=== PATIENT | male | born 1970 | race Caucasian/White ===

== ENCOUNTER 2023-10-07 13:43 | Emergency (ER) | payer OTHER, SELFPAY ==
[2023-10-07 14:02] VITALS: BP 121/95
[2023-10-07 14:27] VITALS: BMI 22.9
[2023-10-07 14:36] LABS: Glucose - Point of Care 105 mg/dl (70-99)
[2023-10-07 16:03] VITALS: BP 135/91
[2023-10-07 16:14] LABS: % Basophils 0.5 % (0-2); % Eosinophils 0.6 % (0-6); % Immature Granulocytes 0.3 % (0-0.5); % Lymphocytes 16.2 % (20.5-51.1); % Monocytes 6.1 % (1.7-9.3); % Neutrophils 76.3 % (42.2-75.2); Absolute Eosinophils 0.1 10^3/uL (0-0.7); Absolute Lymphocytes 1.4 10^3/uL (1.2-3.4); Absolute Monocytes 0.5 10^3/uL (0.1-0.6); Absolute Neutrophils 6.6 10^3/uL (1.4-6.5); Hematocrit 41.4 % (39.0-52.0); Hemoglobin 14.5 g/dL (13.0-18.0); Mean Corpuscular Hgb 31.5 pg (27.0-31.0); Mean Corpuscular Volume 89.8 fL (80.0-94.0); Mean Platelet Volume 9.4 fL (7.4-10.4); Nucleated Red Blood Cells % 0 % (-); Platelet Count 354 10^3/uL (130-400); Red Blood Cell Count 4.61 10^6/uL (4.70-6.10); Red Cell Dist. Width 12.7 % (11.5-14.5); White Blood Cell Count 8.6 10^3/uL (4.8-10.8)
[2023-10-07 16:31] LABS: ALT (SGPT) 37 U/L (0-50); AST (SGOT) 29 U/L (17-59); Albumin 4.7 g/dl (3.5-5.0); Alkaline Phosphatase 83 U/L (38-126); Blood Urea Nitrogen 21 mg/dl (9-20); Calcium 9.7 mg/dl (8.4-10.2); Carbon Dioxide 25 mmol/L (22-30); Chloride 107 mmol/L (98-107); Estimated Creatinine Clearance 108 ml/min; Glucose 106 mg/dl (70-99); Lipase 114 U/L (23-300); Sodium 138 mmol/L (135-145); Total Bilirubin 0.4 mg/dl (0.2-1.3); Total Protein 7.8 g/dl (6.3-8.2); eGFR > 60.00
--- NOTE | 2023-10-07 16:39 | ED.GENMED ---
History of Present Illness
General
Chief Complaint: Abnormal Lab Value
Source: patient
Exam Limitations: none
Time Seen by Provider: 10/07/23 15:00
Nursing documentation reviewed up to this point in time: agreed with
Travel History
Have you had any contact with someone who has COVID-19?: No
Do you have any symptoms of coronavirus? Fever > 100 degrees, chills, cough, shortness of breath, sore throat, loss of taste or smell, muscle aches, or headache?: No
History of Present Illness
History of Present Illness:
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
just 'does not feel right'. Patient reports he had recent blood work done and his doctor told him to follow-up with the retail sales associate bilingual. Patient states he is extremely worried that he may be diabetic and feels this is accounting for him not
feeling well. He denies headache, fever, sore throat, chest pain and shortness of breath. He reports he has maintained a low-carb diet but has not lost any weight on this diet. In addition, patient explains that he feels extremely nervous that
something might be wrong with his pancreas and is worried about developing pancreatic cancer. Additionally, patient reports that he has had chronic intermittent dizziness and brief episodes of blurred vision for years, ever since having his brain
tumor and stroke, and states that he continues to have these episodes of brief dizziness and blurred vision from time to time. However, he denies any significantly worse or concerning visual changes or dizziness. He denies any decline in
functioning. He reports he gets around with a cane. Patient reports he is 'not a hypochondriac' but wants to make sure he is okay
Past History
Past History
ED Past Medical History: Cancer (Cystic cerebellar astrocytoma status post brain surgery and radiation in 1988 and 1995)
ED Past Surgical History: Brain (Cystic cerebellar astrocytoma removal initially in 1988 and second portion of the tumor removed in 1995)
Social History
Tobacco: Non-smoker
Alcohol: None
Drug: None
Personal: Single
Living: alone
Employment: Employed
Family History
Family History: Other (Father of lung cancer also alcoholism)
Review of Systems
Review of Systems
Allergies reviewed?: Yes
All Other Systems: ROS reviewed and negative except as documented in HPI and ROS
Constitutional: Reports no symptoms
EENT: Reports other (Brief episodes of blurred vision from time to time that are chronic for years)
Respiratory: Reports no symptoms
Cardiac: Reports no symptoms
ABD/GI: Reports no symptoms
: Reports no symptoms
Musculoskeletal: Reports no symptoms
Skin: Reports no symptoms
Neurological: Reports dizzy (Brief episodes that are chronic for years)
Endocrine: Reports no symptoms
Hematologic/Lymphatic: Reports no symptoms
Psychiatric: Reports no symptoms
Phy Exam
Physical Exam
Physical Exam:
Physical Exam
General: no apparent distress, not acutely ill. Patient appears comfortable, well-nourished and well-perfused
Neck: supple. no meningeal signs. normal psoterior pharynx
Heart: s1/s2 regular rate and rhythm, no murmur. equal radial pulses.
Lungs: no acute respiratory distress. clear bilaterally
Abdomen: normal bowel sounds. not tender. no CVAT
Neuro: alert and orientedx3. Mild chronic aphasia. 5 out of 5 strength in all extremities. Equal sensation bilaterally. Has difficulty with [id number] but patient states he always does
Skin: no rash
Psychiatric: well kept. interactive and cooperative
Extremities: no edema. no calf tenderness. negative homans. good distal pulses
Course
Orders/Labs/Results
Orders:
Orders
10/07/23 15:45
Electrocardiogram (*1) Urgent
Reason for Study: Vertigo / Dizzy
EKG- Treatment ONCE
10/07/23 15:46
CT Head W/o Iv Contrast Urgent
Comment:
Reason For Exam: dizzy
10/07/23 16:02
Complete Blood Count/With Diff Urgent
Comprehensive Metabolic Panel Urgent
Lipase Urgent
Troponin I Urgent
10/07/23 16:37
Urinalysis Reflex To Culture Urgent
Date Specimen was Collected: 10/07/23
Time Specimen was Collected: 16:35
Abnormal Lab Results
10/07/23 10/07/23 10/07/23
14:34 16:02 16:37
RBC 4.61 L 10^6/uL
(4.70-6.10)
MCH 31.5 H pg
(27.0-31.0)
Absolute Neuts (auto) 6.6 H 10^3/uL
(1.4-6.5)
Neutrophils % 76.3 H %
(42.2-75.2)
Lymphocytes % 16.2 L %
(20.5-51.1)
BUN 21 H mg/dl
(9-20)
Glucose 106 H mg/dl
(70-99)
Urine Ketones 3+ A
(Negative)
POC Glucose 105 H mg/dl
(70-99)
10/07/23 16:02
10/07/23 16:02
Vital Signs
Initial and Last Documented VS:
Initial Vital Signs
Temp Pulse Resp BP Pulse Ox
98.0 F 110 18 121/95 95
10/07/23 14:02 10/07/23 14:02 10/07/23 14:02 10/07/23 14:02 10/07/23 14:02
Last Documented Vital Signs
Temp Pulse Resp BP Pulse Ox
98.0 F 99 18 135/91 99
10/07/23 14:02 10/07/23 16:03 10/07/23 14:02 10/07/23 16:03 10/07/23 16:03
MDM/Problems Addressed
Differential Diagnosis Includes:
Dehydration, UTI, hyponatremia, acute renal injury
MDM/Problems Addressed:
Patient presents with acute feelings of not feeling well and chronic intermittent blurred vision and dizziness for years that he states is not worse than his normal waxing and waning
Chronic conditions affecting care:
Given patient's history of prior stroke and brain tumor, he could be at increased risk of stroke or infection
Acute Exacerbation and/or Progression of Chronic Illness:
Patient has mild acute hypertension, however, I suspect this is more likely due to anxiety.
Acute Exacerbation and/or Progression of Chronic Illness: HTN
*Radiology
Radiology exam reviewed: radiology read reviewed
*Pulse Oximetry
Patient hypoxic: no
*EKG
Interpreted by ED Provider?: Yes
Interpretation: normal
Comparison EKG: no changes
Rate: normal
Rhythm: sinus
[place]: normal axis
Interval: normal interval
QRS Pattern: normal QRS
Ischemia: no ischemia
*[employer] Interpretation
Rate: normal
Interpretation: normal
Rhythm: sinus
*Critical Care Note
Total Time (30-74mins, 75-104mins- exclusive of procedures): Not Applicable
Data Reviewed
Review of Other/Old Records Reveals: Progress Notes (Medical consultation reviewed from Dr Lasha Thakur October 2018 when patient was evaluated for difficulty walking with left leg numbness)
Source: patient
Patient Management
Social determinants of health affecting care: Strong social support
Escalation/DeEscalation of care consider admission/obs:
Patient continues to look extremely well and comfortable. His CT shows no acute changes nor does he report any concerning acute neurological problems. There is no sign of pneumonia on lung exam. There is no sign of UTI. There is no sign of
significant lab abnormalities. Patient given reassurance and will follow-up with his doctor.
ED Attending Note
-
Portions of this chart may have been created with voice recognition software.� Occasional wrong word or��sound alike� substitutions may have occurred due to the inherent limitations of voice recognition software.
Discharge Plan
Departure
Patient Disposition: Home (Routine Discharge)
Date of Disposition: 10/07/23
Time of Disposition: 18:11
Patient with high blood pressure during this ER visit?: Yes
Condition: Good
Covid-19: Not Applicable
Discharge Problem:
Fatigue
Instructions: Fatigue ED
Prescriptions:
No Action
atorvastatin 80 MG tablet
80 mg PO QPM 30 Days 0RF
aspirin 81 MG tablet,chewable
81 mg PO DAILY Qty: 30 0RF
Referrals:
Hesham Rodney DO [Family Provider] -
Interventions
Interventions:
*Risk Screen - Suicide Last Done: 10/07/23 14:30
*General Assessment Last Done: 10/07/23 13:56
*Neglect/Abuse Screening Last Done: 10/07/23 14:30
ED- Fall Risk Assessment Last Done: 10/07/23 14:30
*ED COVID-19 Vaccine History Last Done: 10/07/23 13:56
[2023-10-07 16:42] LABS: Urine Albumin Negative (Neg - Trace); Urine Bilirubin Negative (Negative); Urine Character Very Cloudy (Clear); Urine Color Yellow; Urine Glucose Negative (Negative); Urine Ketone 3+ (Negative); Urine Leukocyte Negative (Negative); Urine Nitrite Negative (Negative); Urine Occult Blood Negative (Negative); Urine Specific Gravity 1.015 (<1.030); Urine Urobilinogen Negative (Neg - 1+)
[2023-10-07 16:42] LABS: Troponin I < 0.012 ng/ml
== END 2023-10-07 18:26 | disposition home or self-care (01) ==
LOC: EMR 13:43
PROVIDERS: EMERGENCY PHYSICIAN Emergency Medicine; FAMILY PHYSICIAN Family Medicine
DX: R53.83 Other fatigue (principal); H53.8 Other visual disturbances; R42 Dizziness and giddiness; R03.0 Elevated blood-pressure reading, without diagnosis of hypertension; Z85.841 Personal history of malignant neoplasm of brain; Z79.82 Long term (current) use of aspirin; Z92.3 Personal history of irradiation; Z86.73 Personal history of transient ischemic attack (TIA), and cerebral infarction without residual deficits
CPT/HCPCS: 99284; 70450; 80053; 81003; 82962; 83690; 84484; 85025; 93005

== ENCOUNTER 2023-10-12 00:54 | Emergency (ER) | payer OTHER, SELFPAY ==
[2023-10-12 00:58] VITALS: BP 117/84
[2023-10-12 01:00] VITALS: BP 117/80
[2023-10-12 02:00] VITALS: BP 130/87
--- NOTE | 2023-10-12 02:07 | ED.GENMED ---
History of Present Illness
General
Chief Complaint: Sleep Disturbances
Source: patient
Exam Limitations: none
Time Seen by Provider: 10/12/23 01:26
Nursing documentation reviewed up to this point in time: agreed with
Travel History
Have you had any contact with someone who has COVID-19?: No
Do you have any symptoms of coronavirus? Fever > 100 degrees, chills, cough, shortness of breath, sore throat, loss of taste or smell, muscle aches, or headache?: No
History of Present Illness
History of Present Illness:
52-year-old male with a past medical history of CVA in 2019, distant history of astrocytoma s/p resection presents for evaluation after an episode of confusion. Patient says he was sleeping and what he describes is 'I felt like a curtain of red
color went across my vision.' He says that this 'really freaked me out.' He says that it lasted for a few minutes and went away. He cannot tell me whether this happened while he was sleeping or if he was awake. He says that his roommate called
an ambulance to have him checked out�patient says that he was very concerned that maybe this was a stroke. I called his roommate to obtain some collateral history�he says that he heard some shouting from patient's room and when he went in patient
was laying on the bed 'thrashing from [id number]' and he says patient was screaming 'no, my blood work has never been like this before.' He says that shortly thereafter patient got up out of bed and was repeatedly checking his blood pressure and
appeared to be very frustrated. He says that while he was awake and coherent he was not really responding to roommates questions. Ultimately called EMS to bring him to the hospital and by EMS arrival he was calm and coherent. Here in the
emergency room patient denies any symptoms, only says that he is tired. Denies any headache, neck pain, chest pain, abdominal pain, back pain. He denies any change in his vision. Denies any speech difficulties. He denies any numbness or weakness
in his extremities. He was seen last week in the emergency room for 'just feeling off;' workup was negative he was discharged.
Past History
Past History
ED Past Medical History: Cancer (Cystic cerebellar astrocytoma status post brain surgery and radiation in 1988 and 1995)
ED Past Surgical History: Brain (Cystic cerebellar astrocytoma removal initially in 1988 and second portion of the tumor removed in 1995)
Social History
Tobacco: Non-smoker
Alcohol: None
Drug: None
Personal: Single
Living: alone
Employment: Employed
Family History
Family History: Other (Father of lung cancer also alcoholism)
Review of Systems
Review of Systems
All Other Systems: ROS reviewed and negative except as documented in HPI and ROS
Constitutional: Denies fever
Respiratory: Denies cough or trouble breathing
Cardiac: Denies chest pain or palpitations
ABD/GI: Denies abdominal pain, nausea or vomiting
: Denies flank pain
Musculoskeletal: Denies neck pain or back pain
Neurological: Reports other (Behavioral disturbance/visual disturbance); Denies headache, weakness or numbness
Phy Exam
Physical Exam
Physical Exam:
General: Awake, alert, oriented x3; no acute distress
Head: Normocephalic, atraumatic
Eyes: Conjunctiva normal, anisocoria with left pupil slightly greater than right which patient says is baseline since his surgery; pupils are round and reactive to light bilaterally; extraocular movements are intact
Throat: Airway intact, handling secretions
Neck: Trachea midline, supple without meningismus
Lungs: Breathing comfortably no distress, normal respiratory rate, normal pulse ox
Heart: Regular rate
Abd: Soft, non distended, nontender
Neuro: Cranial nerves intact 2 through 12, speech fluid with no dysarthria aphasia, no limb ataxia, motor and sensory function is intact and symmetric upper and lower extremities
Skin: no rash
Extremities: No edema in extremities, equal pulses in all extremities
Scores
Heart Failure Risk
Heart Failure Risk Score: Not Applicable
Heart Score for Chest Pain Patients
STEMI patient?: Not applicable
Withdrawal Assessment of Alcohol
Withdrawal Assessment Completed?: Not applicable
Course
Orders/Labs/Results
Orders:
Orders
10/12/23 02:08
CT Head W/o Iv Contrast Urgent
Comment:
Reason For Exam: transient confusion
10/12/23 02:40
Alcohol Urgent
Basic Metabolic Panel Urgent
Complete Blood Count/With Diff Urgent
10/12/23 03:29
Alcohol Urgent
Comprehensive Metabolic Panel Urgent
Abnormal Lab Results
10/12/23
02:40
RBC 4.12 L 10^6/uL
(4.70-6.10)
Hct 38.6 L %
(39.0-52.0)
MCH 31.8 H pg
(27.0-31.0)
Absolute Monos (auto) 0.8 H 10^3/uL
(0.1-0.6)
Monocytes % 10.2 H %
(1.7-9.3)
BUN 27 H mg/dl
(9-20)
Glucose 105 H mg/dl
(70-99)
10/12/23 02:40
Vital Signs
Initial and Last Documented VS:
Initial Vital Signs
Temp Pulse Resp BP Pulse Ox
36.7 C 72 13 117/84 96
10/12/23 00:58 10/12/23 00:58 10/12/23 00:58 10/12/23 00:58 10/12/23 00:58
Last Documented Vital Signs
Temp Pulse Resp BP Pulse Ox
36.7 C 64 13 105/66 97
10/12/23 00:58 10/12/23 03:45 10/12/23 03:45 10/12/23 03:32 10/12/23 03:45
MDM/Problems Addressed
Differential Diagnosis Includes:
Delirium, night terrors/nightmares, seizure; metabolic encephalopathy related to infection or electrolyte derangement somewhat less likely given complete return to normal
MDM/Problems Addressed:
52-year-old male presents for evaluation after visual/behavioral disturbance as described above. Feels well here aside from being slightly tired. Vital signs normal. Exam as above. Plan to place an IV check labs including a CBC and a CMP,
alcohol level. Will check CT head in an abundance of caution given his history. Will monitor here reassess after the above.
Labs reviewed CBC and BMP unremarkable. CT head negative. Patient remains awake alert coherent normal vitals feeling well. Suspect this was likely some sleep related confusion or transient delirium. No clear indication for admission at this
point in time. I think he is stable for discharge can follow-up outpatient with his primary doctor. Provided referral to neurology as needed. Spoke about return precautions all questions answered.
Chronic conditions affecting care:
Astrocytoma, CVA
*Radiology
Radiology exam reviewed: radiology read reviewed
*Pulse Oximetry
Patient hypoxic: no
*Critical Care Note
Total Time (30-74mins, 75-104mins- exclusive of procedures): Not Applicable
Data Reviewed
Source: patient, records and other (Roommate)
ED Attending Note
-
Portions of this chart may have been created with voice recognition software.� Occasional wrong word or��sound alike� substitutions may have occurred due to the inherent limitations of voice recognition software.
Discharge Plan
Departure
Patient Disposition: Home (Routine Discharge)
Date of Disposition: 10/12/23
Time of Disposition: 03:55
Patient with high blood pressure during this ER visit?: No
Discharge Problem:
Confusional arousals
Instructions: Night terrors, confusional arousals, and nightmares in children
Prescriptions:
No Action
atorvastatin 80 MG tablet
80 mg PO QPM 30 Days 0RF
aspirin 81 MG tablet,chewable
81 mg PO DAILY Qty: 30 0RF
Referrals:
Mark,Hesham T., MD [Active] - Call in 1-3 days for appt
Hesham Rodney DO [Family Provider] - Call in 1-3 days for appt
Activity Restrictions/Additional Instructions:
Thank you for visiting the Emergency Department at [facility].
1. Please schedule a follow up appointment as directed. Call first thing tomorrow morning to make an appointment.
2. If indicated, please take your medications as instructed and indicated on discharge paperwork.
3. If any of your symptoms do not improve, or persist, or become more severe within 6-12 hours, please return to the emergency department for further care.
4. Please return to the emergency department if you develop a headache, neck pain/stiffness, fever greater than 100.4F, chest pain, shortness of breath, persistent nausea, vomiting, slurred speech, difficulty walking, numbness/tingling, weakness,
signs of infection or any other symptoms that are worrisome to you.
Please call [phone] if you have any questions.
Interventions
Interventions:
*Risk Screen - Suicide Last Done: 10/12/23 00:58
*General Assessment Last Done: 10/12/23 00:58
*Neglect/Abuse Screening Last Done: 10/12/23 00:58
ED- Fall Risk Assessment Last Done: 10/12/23 01:13
*ED COVID-19 Vaccine History Last Done: 10/12/23 01:13
ED-Suicide Risk Assessment Last Done: 10/12/23 01:13
ED- Neurological Assessment Last Done: 10/12/23 01:13
ED-Psychological Assessment Last Done: 10/12/23 01:13
[2023-10-12 02:50] LABS: % Basophils 0.5 % (0-2); % Eosinophils 1.3 % (0-6); % Immature Granulocytes 0.1 % (0-0.5); % Lymphocytes 30.8 % (20.5-51.1); % Monocytes 10.2 % (1.7-9.3); % Neutrophils 57.1 % (42.2-75.2); Absolute Eosinophils 0.1 10^3/uL (0-0.7); Absolute Lymphocytes 2.5 10^3/uL (1.2-3.4); Absolute Monocytes 0.8 10^3/uL (0.1-0.6); Absolute Neutrophils 4.5 10^3/uL (1.4-6.5); Hematocrit 38.6 % (39.0-52.0); Hemoglobin 13.1 g/dL (13.0-18.0); Mean Corp Hgb Conc. 33.9 g/dL (33.0-37.0); Mean Corpuscular Hgb 31.8 pg (27.0-31.0); Mean Corpuscular Volume 93.7 fL (80.0-94.0); Mean Platelet Volume 9.9 fL (7.4-10.4); Nucleated Red Blood Cells % 0 % (-); Platelet Count 364 10^3/uL (130-400); Red Blood Cell Count 4.12 10^6/uL (4.70-6.10); Red Cell Dist. Width 12.8 % (11.5-14.5)
[2023-10-12 03:32] VITALS: BP 105/66
[2023-10-12 03:54] LABS: Alcohol None Detected; Blood Urea Nitrogen 27 mg/dl (9-20); Calcium 9.6 mg/dl (8.4-10.2); Carbon Dioxide 25 mmol/L (22-30); Chloride 104 mmol/L (98-107); Glucose 105 mg/dl (70-99); Sodium 137 mmol/L (135-145); eGFR > 60.00
[2023-10-12 04:00] VITALS: BP 110/83
== END 2023-10-12 04:45 | disposition home or self-care (01) ==
LOC: EMR 00:54
PROVIDERS: EMERGENCY PHYSICIAN Emergency Medicine; FAMILY PHYSICIAN Family Medicine
DX: G47.51 Confusional arousals (principal); Z80.1 Family history of malignant neoplasm of trachea, bronchus and lung; Z86.73 Personal history of transient ischemic attack (TIA), and cerebral infarction without residual deficits; Z92.3 Personal history of irradiation
CPT/HCPCS: 99284; 70450; 80048; 80053; 82077; 84443; 85025; 93005; 99283

== ENCOUNTER 2023-10-12 10:46 | Emergency (ER) | payer OTHER, SELFPAY ==
[2023-10-12 11:08] VITALS: BP 118/83
[2023-10-12 11:50] LABS: ALT (SGPT) 32 U/L (0-50); AST (SGOT) 23 U/L (17-59); Albumin 4.5 g/dl (3.5-5.0); Alkaline Phosphatase 67 U/L (38-126); Blood Urea Nitrogen 21 mg/dl (9-20); Calcium 10.1 mg/dl (8.4-10.2); Carbon Dioxide 28 mmol/L (22-30); Chloride 103 mmol/L (98-107); Glucose 126 mg/dl (70-99); Potassium 4.1 mmol/L (3.5-5.1); Sodium 141 mmol/L (135-145); Total Bilirubin 0.8 mg/dl (0.2-1.3); eGFR > 60.00
[2023-10-12 11:52] LABS: % Basophils 0.5 % (0-2); % Eosinophils 0.3 % (0-6); % Immature Granulocytes 0.2 % (0-0.5); % Lymphocytes 19.6 % (20.5-51.1); % Monocytes 6.4 % (1.7-9.3); Absolute Lymphocytes 1.3 10^3/uL (1.2-3.4); Absolute Monocytes 0.4 10^3/uL (0.1-0.6); Absolute Neutrophils 4.8 10^3/uL (1.4-6.5); Hemoglobin 14.8 g/dL (13.0-18.0); Mean Corp Hgb Conc. 35.2 g/dL (33.0-37.0); Mean Corpuscular Hgb 31.8 pg (27.0-31.0); Mean Corpuscular Volume 90.1 fL (80.0-94.0); Mean Platelet Volume 9.4 fL (7.4-10.4); Nucleated Red Blood Cells % 0 % (-); Platelet Count 393 10^3/uL (130-400); Red Blood Cell Count 4.66 10^6/uL (4.70-6.10); Red Cell Dist. Width 12.9 % (11.5-14.5); White Blood Cell Count 6.6 10^3/uL (4.8-10.8)
[2023-10-12 13:38] VITALS: BP 141/93
[2023-10-12 14:00] VITALS: BP 112/87
--- NOTE | 2023-10-12 14:04 | ED.GENMED ---
History of Present Illness
General
Chief Complaint: Weakness
Source: patient
Time Seen by Provider: 10/12/23 13:39
Travel History
Have you had any contact with someone who has COVID-19?: No
Do you have any symptoms of coronavirus? Fever > 100 degrees, chills, cough, shortness of breath, sore throat, loss of taste or smell, muscle aches, or headache?: No
History of Present Illness
History of Present Illness:
52-year-old male presents to the emergency room complaining of feeling tired, insomnia, generalized weakness. Patient also concerned that he is lost 4 pounds over the past month. In addition the patient has noticed he is taking K2 vitamin complex.
He did some reading and found that it contains both a coagulant and an anticoagulant. In reviewing his lab work he noted that his RBC count dropped somewhat between his visits and he is concerned this is what is making him weak. He has not noted
any particular area of bleeding.
Past History
Past History
ED Past Medical History: Cancer (Cystic cerebellar astrocytoma status post brain surgery and radiation in 1988 and 1995)
ED Past Surgical History: Brain (Cystic cerebellar astrocytoma removal initially in 1988 and second portion of the tumor removed in 1995)
Social History
Tobacco: Non-smoker
Alcohol: None
Drug: None
Personal: Single
Living: alone
Employment: Employed
Family History
Family History: Other (Father of lung cancer also alcoholism)
Phy Exam
Physical Exam
Physical Exam:
General: Awake, Alert, Oriented X3. No acute distress.
Vitals: unremarkable
Head: Atraumatic
Eyes: Pupils equal, EOMI
Throat: Airway intact, no exudates
Neck: Trachea midline
Lungs: Clear and equal b/l
Heart: Regular rate, no murmurs
Abd: Soft, Nontender, No pulsatile mass
Neuro: Grossly nonfocal
Skin: Warm, dry, no rash
Extremities: pulses equal b/l, no edema
Course
Orders/Labs/Results
Orders:
Orders
10/12/23 11:13
Electrocardiogram (*1) Urgent
Reason for Study: Tachycardia
EKG- Treatment ONCE
10/12/23 11:28
Complete Blood Count/With Diff Urgent
Comprehensive Metabolic Panel Urgent
TSH Reflex To Free T4 Urgent
Comment: ADD ON
10/12/23 14:03
Add On- LAB Urgent
Tests Added?: tsh w reflex T4
Abnormal Lab Results
10/12/23
11:28
RBC 4.66 L 10^6/uL
(4.70-6.10)
MCH 31.8 H pg
(27.0-31.0)
Lymphocytes % 19.6 L %
(20.5-51.1)
BUN 21 H mg/dl
(9-20)
Glucose 126 H mg/dl
(70-99)
10/12/23 11:28
10/12/23 11:28
Vital Signs
Initial and Last Documented VS:
Initial Vital Signs
Pulse Resp BP Pulse Ox
120 18 118/83 100
10/12/23 11:08 10/12/23 11:08 10/12/23 11:08 10/12/23 11:08
Last Documented Vital Signs
Pulse Resp BP Pulse Ox
81 14 130/83 97
10/12/23 16:15 10/12/23 16:15 10/12/23 16:00 10/12/23 16:15
MDM/Problems Addressed
Differential Diagnosis Includes:
Anemia, hypothyroidism, electrolyte abnormality
MDM/Problems Addressed:
Patient presents with generalized weakness. Evaluation here is unremarkable. Suggest discuss possibility of depression with primary. Stable for discharge
*Critical Care Note
Total Time (30-74mins, 75-104mins- exclusive of procedures): Not Applicable
ED Attending Note
-
Portions of this chart may have been created with voice recognition software.� Occasional wrong word or��sound alike� substitutions may have occurred due to the inherent limitations of voice recognition software.
Discharge Plan
Departure
Patient Disposition: Home (Routine Discharge)
Date of Disposition: 10/12/23
Time of Disposition: 16:31
Patient with high blood pressure during this ER visit?: No
Condition: Good
Discharge Problem:
Malaise and fatigue
Instructions: Generalized Weakness (DC)
Prescriptions:
No Action
atorvastatin 80 MG tablet
80 mg PO QPM 30 Days 0RF
aspirin 81 MG tablet,chewable
81 mg PO DAILY Qty: 30 0RF
Referrals:
Hesham Rodney DO [Family Provider] -
Activity Restrictions/Additional Instructions:
Consider discussing your symptoms with your doctor and the possibility depression could be playing a part.
Interventions
Interventions:
*Risk Screen - Suicide Last Done: 10/12/23 11:08
*General Assessment Last Done: 10/12/23 11:08
*Neglect/Abuse Screening Last Done: 10/12/23 11:08
ED- Fall Risk Assessment Last Done: 10/12/23 16:38
*ED COVID-19 Vaccine History Last Done: 10/12/23 13:11
*Nursing Disposition Last Done: 10/12/23 16:38
ED- Cardiac Assessment Last Done: 10/12/23 13:43
ED- Neurological Assessment Last Done: 10/12/23 13:43
ED- Pulmonary Assessment Last Done: 10/12/23 13:43
Discharge Date and Time
Discharge Date/Time: 10/12/23 16:39
[2023-10-12 15:00] VITALS: BP 115/80
[2023-10-12 15:39] LABS: TSH Reflex To Free T4 0.49 uIU/ml (0.47-4.68)
[2023-10-12 16:00] VITALS: BP 130/83
== END 2023-10-12 16:39 | disposition home or self-care (01) ==
LOC: EMR 10:46
PROVIDERS: Emergency Medicine; EMERGENCY PHYSICIAN Emergency Medicine; FAMILY PHYSICIAN Family Medicine
DX: R53.81 Other malaise (principal); R53.83 Other fatigue; G47.00 Insomnia, unspecified; Z80.1 Family history of malignant neoplasm of trachea, bronchus and lung; Z85.841 Personal history of malignant neoplasm of brain; Z92.3 Personal history of irradiation; Z98.890 Other specified postprocedural states
CPT/HCPCS: 80053; 84443; 85025; 93005; 99283

== ENCOUNTER 2023-11-07 13:18 | Outpatient (RCR) | payer OTHER, SELFPAY | END 2023-11-07 23:59 | disposition home or self-care (01) | LOC: RPT 13:18 | PROVIDERS: ATTENDING PHYSICIAN Family Medicine | DX: M25.511 Pain in right shoulder (principal); Z73.6 Limitation of activities due to disability; R20.2 Paresthesia of skin; R20.0 Anesthesia of skin; M54.2 Cervicalgia | CPT/HCPCS: 97010; 97110; 97112; 97162 ==

== ENCOUNTER 2023-12-05 09:56 | Outpatient (RCR) | payer OTHER, SELFPAY | END 2023-12-05 23:59 | disposition home or self-care (01) | LOC: RPT 09:56 | PROVIDERS: ATTENDING PHYSICIAN Family Medicine | DX: M25.511 Pain in right shoulder (principal); Z73.6 Limitation of activities due to disability; R20.0 Anesthesia of skin | CPT/HCPCS: 97010; 97110; 97112 ==

== ENCOUNTER 2023-12-26 10:59 | Outpatient (RCR) | payer OTHER, SELFPAY | END 2023-12-27 07:18 | disposition home or self-care (01) | LOC: RPT 10:59 | PROVIDERS: ATTENDING PHYSICIAN Family Medicine | DX: M25.512 Pain in left shoulder (principal); M54.2 Cervicalgia; Z73.6 Limitation of activities due to disability | CPT/HCPCS: 97010; 97110; 97112 ==

== ENCOUNTER → 2024-02-15 13:01 | Outpatient (REF) | payer OTHER, SELFPAY | LOC: MRI 3T 13:01 | PROVIDERS: ATTENDING PHYSICIAN Psychiatry & Neurology Neurology; FAMILY PHYSICIAN Family Medicine | DX: I63.9 Cerebral infarction, unspecified (principal); C71.6 Malignant neoplasm of cerebellum; R41.0 Disorientation, unspecified | CPT/HCPCS: 70553; A9575 ==

== ENCOUNTER → 2024-03-10 11:29 | Outpatient (REF) | payer OTHER, SELFPAY ==
--- NOTE | 2024-03-10 13:27 | EEG.RPT ---
Electroencephalogram Report
Recording
Date of EE03/10/24
Type of EEG: Routine
Length of EEG recordin minutes
Done with Video Recording: Yes
Patient Status: Outpatient
Recording Conditions: Awake and Drowsy
Hyperventilation Performed: No
Photic Stimulation Performed: Yes
Report
GREATER THAN 1 HOUR EEG REPORT
EEG INTERPRETATION:
Unremarkable EEG for age
CLINICAL CORRELATION:
A normal EEG does not rule out a diagnosis of epilepsy. If clinical suspicion for seizure persists, a prolonged recording may be warranted.
Clinical correlation is advised.
METHODS:
A 21 channel digitized electroencephalogram (EEG) was performed in the [facility]. The 10/20 international system of electrode placement was used with ECG and lateral/vertical eye movements recorded. Persyst quantitative EEG
analysis was performed.
ELECTROENCEPHALOGRAPHER IMPRESSION(S):
Quality of study
Good
Background
Unremarkable, well maintained, medium amplitude alpha-frequency and unremarkable anterior-posterior voltage gradient
With eye opening the background activity changed to a low voltage mixture of frequencies.
Sleep
Drowsiness present
Photic Stimulation
Did not activate the record
ECG
Normal sinus rhythm
== END ==
LOC: EEG 11:29
PROVIDERS: ATTENDING PHYSICIAN Psychiatry & Neurology Neurology; FAMILY PHYSICIAN Family Medicine
DX: R41.0 Disorientation, unspecified (principal)
CPT/HCPCS: 95813

== ENCOUNTER → 2024-05-12 07:13 | Outpatient (REF) | payer OTHER, SELFPAY | LOC: EMG 07:13 | PROVIDERS: ATTENDING PHYSICIAN Psychiatry & Neurology Neurology; FAMILY PHYSICIAN Family Medicine | DX: R20.2 Paresthesia of skin (principal) | CPT/HCPCS: 95886; 95911 ==

== ENCOUNTER 2024-07-30 12:44 | Emergency (ER) | payer OTHER, SELFPAY ==
[2024-07-30 12:53] VITALS: BP 123/79
--- NOTE | 2024-07-30 15:23 | ED.GENMED ---
History of Present Illness
General
Chief Complaint: Crisis Evaluation
Source: patient
Time Seen by Provider: 07/30/24 15:11
History of Present Illness
History of Present Illness:
53-year-old male with past medical history of previous brain tumor and CVA presenting to the emergency department for evaluation of increased depression that has been ongoing for the last few years stating that he just feels as if he does not have
anything to live for. Patient states that due to his medical history he has significant limitations and is unable to work, currently living with a friend and states that because he has nothing to do he just sits there and thinks and contemplates
his life. Patient denies any suicidal ideation, homicidal ideation, auditory or visual hallucinations. Denies any alcohol or substance abuse. Patient was recommended to come to the emergency department by his physician Dr. King from [facility]. Patient does note over the last few months he has had increased difficulty sleeping.
Past History
Past History
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
ED Past Surgical History: Brain (Cystic cerebellar astrocytoma removal initially in 1988 and second portion of the tumor removed in 1995)
Social History
Tobacco: Non-smoker
Alcohol: None
Drug: None
Personal: Single
Living: alone
Employment: Disabled
Family History
Family History: Other (Father of lung cancer also alcoholism)
Review of Systems
Review of Systems
All Other Systems: ROS reviewed and negative except as documented in HPI and ROS
Phy Exam
Physical Exam
Physical Exam:
GENERAL: Alert , in no apparent distress
EYE: conjunctiva clear
Head: Normocephalic atraumatic
NECK: Supple,
ENT: mmm.
LUNGS: no acute respiratory distress
NEUROLOGICAL: Alert and oriented
SKIN: Warm and dry, skin intact.
MUSCULOSKELETAL: well perfused.
PSYCH: Normal and appropriate interaction.
Scores
Heart Failure Risk
Heart Failure Risk Score: Not Applicable
Heart Score for Chest Pain Patients
STEMI patient?: Not applicable
Withdrawal Assessment of Alcohol
Withdrawal Assessment Completed?: Not applicable
Course
Orders/Labs/Results
Orders:
Orders
07/30/24 14:53
Crisis Consult Urgent
Reason for Consult: depression; denies SI
Vital Signs
Initial and Last Documented VS:
Initial Vital Signs
Temp Pulse Resp BP Pulse Ox
98 F 105 16 123/79 98
07/30/24 12:53 07/30/24 12:53 07/30/24 12:53 07/30/24 12:53 07/30/24 12:53
Last Documented Vital Signs
Temp Pulse Resp BP Pulse Ox
98 F 105 16 123/79 98
07/30/24 12:53 07/30/24 12:53 07/30/24 12:53 07/30/24 12:53 07/30/24 12:53
MDM/Problems Addressed
Differential Diagnosis Includes:
Depression, adjustment disorder, no suicidal or homicidal ideations
MDM/Problems Addressed:
53-year-old male presenting to the emergency department for evaluation of increased depression at the request of primary care provider. Notes that he has had difficulty sleeping over the last few months. Took Benadryl last night which did give him
a little bit of rest. Denies suicidal ideation. No physical complaints other than his usual general chronic pain. No alcohol or tobacco/substance abuse. Patient can be safely dispositioned to [facility] for further evaluation and ultimate
disposition planning.
*Pulse Oximetry
Patient hypoxic: no
*Critical Care Note
Total Time (30-74mins, 75-104mins- exclusive of procedures): Not Applicable
Data Reviewed
Review of Other/Old Records Reveals: Records
ED Attending Note
-
Portions of this chart may have been created with voice recognition software.� Occasional wrong word or��sound alike� substitutions may have occurred due to the inherent limitations of voice recognition software.
Discharge Plan
Departure
Patient Disposition: [facility]
Date of Disposition: 07/30/24
Time of Disposition: 15:23
Patient with high blood pressure during this ER visit?: No
Discharge Problem:
Depression
Instructions: Depression, Adult (DC)
Prescriptions:
No Action
atorvastatin 80 MG tablet
80 mg PO QPM 30 Days 0RF
aspirin 81 MG tablet,chewable
81 mg PO DAILY Qty: 30 0RF
Interventions
Interventions:
*Risk Screen - Suicide Last Done: 07/30/24 12:45
*General Assessment Last Done: 07/30/24 12:56
*Neglect/Abuse Screening Last Done: 07/30/24 12:56
ED- Fall Risk Assessment Last Done: 07/30/24 15:42
*ED COVID-19 Vaccine History Last Done: 07/30/24 15:42
*Nursing Disposition Last Done: 07/30/24 15:42
ED-Psychological Assessment Last Done: 07/30/24 15:43
Discharge Date and Time
Print Language: [email or web address]
== END 2024-07-30 17:15 ==
LOC: EMR 12:44
PROVIDERS: EMERGENCY PHYSICIAN Emergency Medicine
DX: F32.A Depression, unspecified (principal); G89.29 Other chronic pain; Z85.841 Personal history of malignant neoplasm of brain; Z86.73 Personal history of transient ischemic attack (TIA), and cerebral infarction without residual deficits; Z92.3 Personal history of irradiation
CPT/HCPCS: 99283

== ENCOUNTER → 2025-06-10 13:13 | Outpatient (REF) | payer OTHER, SELFPAY | LOC: RAD 13:13 | PROVIDERS: ATTENDING PHYSICIAN Family Medicine | DX: M54.2 Cervicalgia (principal) | CPT/HCPCS: 72050 ==